=== PATIENT | female | born 1960 | race Caucasian/White ===

== ENCOUNTER 2021-02-11 08:03 | Outpatient (AMBR) | payer BC, SELFPAY ==
--- NOTE | 2021-02-04 12:58 | PTNOTE_ITS ---
PT OP Initial Eval Patient Information Visit Reasons: low back pain Medical Diagnosis: Low Back Pain Treatment Dx #1: Back Pain Start of Care: 02/04/21 Date of Onset: 5 years ago Initial Assessment Subjective Pt is a 60 y/o female c/o chronic low back pain started ~ 5 years ago. Pt's recent xray showed DDD of multilevel but no MRI has been down thus far due to pacemaker. Pt has limitation with prolonged sitting, standing, walking, lifting, work duties, chores, and performing recreational activities. Pt's average back pain (9/10) and worsening to 13/10 some days. Objective L/S AROM: all motions are 50% towards end range with pain in all plane Hip PROM: all motions are WFL Hip MMTs Glute Med: 3/5 Glute Max: 3/5 Assessment Pt demonstrate L/S mobility deficits with pain consistent with DDD findings leading to decline function. 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 Goals 1) Increase L/S AROM WNL in 6 wks to be able to perform chores 2) Decrease back pain to 2/10 in 6 wks to be able to sit and stand more than 30 mins 3) Increase core strength WFL in 6 wks to be able to perform lifting activities 4) Increase hip MMTs grossly to 4-/5 in 6 wks to be able to walk more than 1 hr 5) Indep with HEP Treatment Plan 1) Manual Therapy 2) Therapeutic Activities 3) Therapeutic Exercises 4) Modalities (ice, heat, traction) Frequency and Duration 2 x wk for 6 wks Certification Dates: 02/04/21 to 05/06/21 Office Procedures PT Procedures PT Date of Service: 02/04/21 OP PT Eval Mod Complex 30 minutes: Yes
--- NOTE | 2021-02-09 09:02 | PT.ODAYNRPT ---
PT Outpatient Daily Note Date of Service: 02/09/21 OP Daily Note Visit Reasons: low back pain Outpatient Physical Therapy Treatment Date: 02/09/21 Subjective: Pt mention that her back feels the same and does notice left LE pain x2 a month Objective: Please see flow chart for list of ther ex performed Assessment: tolerate exercises with minimal pain Plan: Continue with PT Length of Time (minutes) of Treatment: 30 Minutes Office Procedures PT Procedures PT Date of Service: 02/09/21 Therapeutic Exercise 30 minutes: Yes PT Procedures PT Date of Service: 02/04/21 OP PT Eval Mod Complex 30 minutes: Yes
--- NOTE | 2021-02-11 08:53 | PT.ODAYNRPT ---
PT Outpatient Daily Note Date of Service: 02/11/21 OP Daily Note Visit Reasons: low back pain Outpatient Physical Therapy Treatment Date: 02/11/21 Subjective: Pt's back was pretty sore after last treatment session. Pt now notice some shooting pain down the left leg. Her pain is worse in sitting. Objective: Please see flow chart for list of ther ex performed Assessment: tolerate exercises with minimal pain Plan: Continue with PT Length of Time (minutes) of Treatment: 30 Minutes Office Procedures PT Procedures PT Date of Service: 02/09/21 Therapeutic Exercise 30 minutes: Yes PT Procedures PT Date of Service: 02/11/21 Therapeutic Exercise 30 minutes: Yes PT Procedures PT Date of Service: 02/04/21 OP PT Eval Mod Complex 30 minutes: Yes
== END 2021-02-11 23:59 | disposition home or self-care (01) ==
PROVIDERS: PCP Student in an Organized Health Care Education/Training Program; Referring Provider Student in an Organized Health Care Education/Training Program; Visit Provider Student in an Organized Health Care Education/Training Program
DX: M54.5 Low back pain (principal); G89.29 Other chronic pain; R26.2 Difficulty in walking, not elsewhere classified
CPT/HCPCS: 97110; 97162

== ENCOUNTER 2021-02-17 08:18 | Outpatient (AMBR) | payer BC, SELFPAY ==
--- NOTE | 2021-02-15 08:53 | PT.ODAYNRPT ---
PT Outpatient Daily Note Date of Service: 02/15/21 OP Daily Note Visit Reasons: low back pain Outpatient Physical Therapy Treatment Date: 02/15/21 Subjective: Pt's back is the same and continues to have the same pain. Pt does feel better after each PT session but pain comes back Objective: Please see flow chart for list of ther ex performed Assessment: tolerate exercises with minimal pain Plan: Continue with PT Length of Time (minutes) of Treatment: 30 Minutes Office Procedures PT Procedures PT Date of Service: 02/15/21 Therapeutic Exercise 30 minutes: Yes
--- NOTE | 2021-02-17 09:26 | PT.ODAYNRPT ---
PT Outpatient Daily Note Date of Service: 02/17/21 OP Daily Note Visit Reasons: low back pain Outpatient Physical Therapy Treatment Date: 02/17/21 Subjective: Pt's back pain is the same. No change and continues to have pain. Objective: Please see flow chart for list of ther ex performed Assessment: tolerate exercises with minimal pain Plan: Continue with PT Length of Time (minutes) of Treatment: 30 Minutes Office Procedures PT Procedures PT Date of Service: 02/17/21 Therapeutic Exercise 30 minutes: Yes PT Procedures PT Date of Service: 02/15/21 Therapeutic Exercise 30 minutes: Yes
--- NOTE | 2021-03-17 12:30 | PT.ODS1RPT ---
PT OP Progress/Discharge Note Date of Service: 03/17/21 Progress Note/DC Note Progress Note/Discharge Note: DC Note Patient Information Visit Reasons: low back pain Service Continue Service or Discharge: Discharge Discharge Date: 03/17/21 Status Assessment: Pt has been seen for 5 visits (eval + 4 visits). Pt was last treated on 02/17/21 and no showed last 3 appts (02/25, 03/04, and 03/17). At this time Pt will be d/c from care due to non-compliance per attendance policy. Pt did not meet set goals in therapy, thank you for your referrals. Office Procedures PT Procedures PT Date of Service: 02/17/21 Therapeutic Exercise 30 minutes: Yes PT Procedures PT Date of Service: 02/15/21 Therapeutic Exercise 30 minutes: Yes
== END 2021-03-14 23:59 | disposition home or self-care (01) ==
PROVIDERS: PCP Student in an Organized Health Care Education/Training Program; Referring Provider Student in an Organized Health Care Education/Training Program; Visit Provider Student in an Organized Health Care Education/Training Program
DX: M54.5 Low back pain (principal); G89.29 Other chronic pain; R26.2 Difficulty in walking, not elsewhere classified
CPT/HCPCS: 97110

== ENCOUNTER 2024-12-04 09:04 | Emergency (ER) | payer OTHER, MEDICAID, SELFPAY ==
[2024-12-04 09:45] VITALS: BP 136/80; PULSE 59; RESP 18; TEMP 36.5; O2SAT 96
[2024-12-04 09:50] VITALS: BMI 43.5
--- NOTE | 2024-12-04 09:56 | XR_ITS ---
Examination: PA lateral chest 2 views TECHNIQUE: Upright PA lateral chest 2 views Exam date and time: December 04, 2024 1009 hours Comparison October 25, 2021 INDICATIONS: Patient has been coughing beginning 10 days ago. FINDINGS: Accentuation of the basilar bronchovascular markings No lobar pneumonia Minor prominence left ventricle Cardiac leads satisfactory position Prominent osteopenia IMPRESSION: Basilar bronchitis pattern
--- NOTE | 2024-12-04 12:07 | EDNOTE_ITS ---
Upper Respiratory Inf. RME/HPI General Chief Complaint: Flu Like Symptoms Stated Complaint: 3 WKS COLD, COUGH Time Seen by Provider: 12/04/24 09:33 Source: patient Arrival date/time: 12/04/24 09:04 This is a 64-year-old female presents to the emergency department with complaints of intermittent cough for 3 weeks. She does report she started with a upper respiratory infection about 3 weeks ago and her symptoms have not improved patient is requesting chest x-ray to rule out pneumonia. Has been taking [id number] cough syrup. Denies fever, chest pain, chills rigors. Mode of arrival: ambulatory Related Data Home Medications ?Medication ?Instructions ?Recorded ?Confirmed spironolactone 25 mg tablet 25 mg PO Daily #0 tabs 09/18/23 (Aldactone) atorvastatin 40 mg tablet (Lipitor) 40 mg PO QDAY 03/0609/18/23 Previous Rx's ?Medication ?Instructions ?Recorded apixaban 5 mg tablet (Eliquis) 5 mg PO BID #60 tabs diltiazem HCl 120 mg 120 mg PO QAM #30 caps 05/12 capsule,extended release 24 hr (Cardizem CD) cyclobenzaprine 10 mg tablet 10 mg PO HS #14 tabs 12/08 doxycycline hyclate 100 mg capsule 100 mg PO Q12H 7 da ys #14 caps 12/04/24 levalbuterol tartrate 45 2 inh inhalation Q6H PRN sharona rtness 12/04/24 mcg/actuation aerosol inhaler of breath or wheezing #1 5 grams Allergies Allergy/AdvReac Type Severity Reaction Status Date / Time No Known Allergies Allergy Verified 06/16/24 14:14 Review of Systems Review of Systems Systems Reviewed: All systems reviewed, normal except as documented ED Exam Narrative Physical exam: General: Sittiing in Exam table in no acute distress, answering questions appropriately HENT: normocephalic, atraumatic, EOMI, PERRLA, moist mucous membranes Chest: chest wall is nontender Cardiac: regular rate and rhythm, normal S1 and S2, no murmurs, rubs, or gallops, capillary refill ?2 seconds Pulmonary: Mild upper wheezing, no crackles, or rhonchi Abdominal: active bowel sounds, soft, nontender, nondistended Neuro: A&OX3, CN II-XII intact, sensation grossly intact bilaterally in UE and LE. Skin: no rashes, no ecchymosis Ext: no lower extremity edema Course Quality Measures none Orders Category Date Time Status XR chest 2V Stat Exams 12/04/24 09:56 Completed Ipratropium [place] Rt Kerline [Atrovent Rt Kerline] Med 12/04/24 12:07 Discontinued 0.5 mg INH X1 ONE Levalbuterol Rt [Xopenex Rt Kerline] Med 12/04/24 12:07 Discontinued 1.25 mg INH X1 ONE Sodium Chloride Rt Kerline 0.9% [NS Rt Kerline 0.9%] Med 12/04/24 12:07 Discontinued 3 ml INH PRN PRN Vital Signs Vital signs: Vital Signs Temperature 97.7 F 12/04/24 09:45 Pulse Rate 59 L 12/04/24 09:45 Respiratory Rate 18 12/04/24 09:45 Blood Pressure 136/80 H 12/04/24 09:45 Pulse Oximetry (%) 96 12/04/24 09:45 Oxygen Delivery Method Room Air 12/04/24 09:45 Upper Respiratory Infection MDM Narrative MDM Narrative:: 67-year-old female presented to the emergency department with complaints of cough lasting approximately 2 weeks, often associated with sputum production, and wheezing. Symptoms consistent with bronchitis. Patient did receive prednisone and a DuoNeb while in ED. Patient did not have any acute hypoxemia. No respiratory distress. X-ray obtained to rule out any lung pathology. Will discharge home with a burst of prednisone, albuterol inhaler. Post follow-up with his PCP * ER precautions to return if there is any worsening symptoms or change in condition Patient data External records reviewed:: [facility] previous records Clinical information provided by:: patient Social determinants that could affect healthcare access:: none Patient has the following chronic illnesses:: Hypertension, A-fib How is presenting disease/condition affected by chronic disease/condition?: no chronic disease Evaluation data The following diagnostics were reviewed and interpreted by me:: radiology exam(s) Lab and/or radiology exams considered but not ordered:: No Interpretation Summary: Examination: PA lateral chest 2 views TECHNIQUE: Upright PA lateral chest 2 views Exam date and time: December 04, 2024 1009 hours Comparison October 25, 2021 INDICATIONS: Patient has been coughing beginning 10 days ago. FINDINGS: Accentuation of the basilar bronchovascular markings No lobar pneumonia Minor prominence left ventricle Cardiac leads satisfactory position Prominent osteopenia IMPRESSION: Basilar bronchitis pattern Medications / Prescriptions Medications or Prescriptions considered but not ordered:: Consider albuterol however patient does not want to have tacky hr which will lead to her A-fib Medication administrations:: Medication Administration History Discontinued Medications Ipratropium [place] (Ipratropium Rt 0.5 Mg/ 2.5 Ml Nebu) 0.5 mg INH X1 ONE Stop: 12/04/24 12:08 Last Admin: 12/04/24 12:26 Dose: 0.5 mg Documented By: Levalbuterol HCl (Levalbuterol Rt 1.25 Mg/0.5 Ml Nebu) 1.25 mg INH X1 ONE Stop: 12/04/24 12:08 Last Admin: 12/04/24 12:26 Dose: 1.25 mg Documented By: Sodium Chloride (Sodium Chloride Rt Kerline 0.9% 3 Ml Nebu) 3 ml INH PRN PRN PRN Reason: SOLN Stop: 01/03/25 12:06 All medications administered and effective Consultations Consultation(s) initiated? (list below): No Diagnosis Upper Respiratory Differential Diagnosis: upper respiratory infection, viral infection, bronchitis, influenza and pharyngitis Most likely diagnosis given after review of the tests above:: bronchitits Admission Indicated Admission indicated?: not indicated Admission Request Was there a request for admission?: No Disposition Plan Disposition Plan: Discharge Discharge Attestation Discharge Attestation: The patient and all family members were given an opportunity to ask questions and understood the discharge instructions. Discharge instructions specifically effects, indications for sooner follow up or return to the emergency department, and the expected course of current diagnosis. Patient condition: Stable Discharge Plan Plan Patient Disposition: HOME (Self Care) Prescriptions/Referrals Prescriptions/Med Rec: New doxycycline hyclate 100 mg capsule 100 mg PO Q12H 7 Days Qty: 14 0RF levalbuterol tartrate 45 mcg/actuation HFA aerosol inhaler 2 inh inhalation Q6H PRN (Reason: shortness of breath or wheezing) Qty: 15 0RF No Action atorvastatin [Lipitor] 40 mg tablet 40 mg PO QDAY spironolactone [Aldactone] 25 MG tablet 25 mg PO Daily Qty: 0 diltiazem HCl [Cardizem CD] 120 mg capsule,extended release 24hr 120 mg PO QAM Qty: 30 0RF Eliquis 5 mg tablet 5 mg PO BID Qty: 60 0RF cyclobenzaprine 10 mg tablet 10 mg PO HS Qty: 14 0RF Referrals: David Aldana MD [Primary Care Provider] - In 1 week Problem List Clinical Impression: Bronchitis Patient/Caregiver Discharge Instructions Discharge Activity: activity as tolerated Education Materials: ED Bronchitis with Wheezing (Adult) Additional Instructions: Please make sure you follow-up with your primary doctor. Your x-ray demonstrates bronchitis pattern Which causes cough, wheezing shortness of breath. -Please use inhaler as directed. -Antibiotics as directed. I would recommend some steroids to help with inflammation Return to the emergency department this any worsening symptoms change in condition. Print Language: Bulgarian Stand Alone Forms: Kristal Award Info., Patient Portal Info Letter PA/SUPERVISOR BILLPOSTING Supervising Physician PA/SUPERVISOR BILLPOSTING Supervising Physician: Dr Simmons
[2024-12-04] MEDS: LEVALBUTEROL RT 1.25 MG/0.5 ML NEBU INH (12:26)
[2024-12-04] MEDS: IPRATROPIUM RT 0.5 MG/ 2.5 ML NEBU INH (12:26)
[2024-12-04 12:29] VITALS: PULSE 60; RESP 16; O2SAT 99
== END 2024-12-04 13:37 | disposition home or self-care (01) ==
PROVIDERS: Emergency Provider Emergency Medicine; PCP Student in an Organized Health Care Education/Training Program
DX: J40 Bronchitis, not specified as acute or chronic (principal)
CPT/HCPCS: 71046; 94640; 99283

== ENCOUNTER 2025-01-02 09:06 | Emergency (ER) | payer OTHER, SELFPAY ==
[2025-01-02 09:06] VITALS: BMI 44.9
[2025-01-02 09:24] VITALS: BP 158/69; PULSE 65; RESP 19; TEMP 37.2; O2SAT 97
--- NOTE | 2025-01-02 09:29 | XR_ITS ---
Examination: PA lateral chest 2 views TECHNIQUE: Upright PA lateral chest 2 views Exam date and time: January 02, 2025 0959 hours INDICATIONS: Coughing headache fever today FINDINGS: Minimal prominence left ventricle Mild vascular congestion. Minimal accentuation basilar bronchovascular markings Satisfactory position No interval pneumonia or pulmonary edema compared with December 04, 2024 IMPRESSION: Mild basilar bronchitis pattern
--- NOTE | 2025-01-02 09:34 | PD.EDURI ---
Upper Respiratory Inf. RME/HPI General Chief Complaint: Flu Like Symptoms Stated Complaint: HEADACHE, CHILLS,COUGH Time Seen by Provider: 01/02/25 09:09 Source: patient Arrival date/time: 01/02/25 09:06 This is a 64-year-old female presents to the emergency department with complaints of intermittent cough, body aches for 3 days. She does report was exposed to flu 5 days ago. Reports her has similar symptoms. Has been taking [id number] cough syrup. Denies fever, chest pain, chills rigors. Mode of arrival: ambulatory Related Data Home Medications ?Medication ?Instructions ?Recorded ?Confirmed spironolactone 25 mg tablet 25 mg PO Daily #0 tabs 11/14/13 09/18/23 (Aldactone) atorvastatin 40 mg tablet (Lipitor) 40 mg PO QDAY 09/18/23 09/18/23 Previous Rx's ?Medication ?Instructions ?Recorded apixaban 5 mg tablet (Eliquis) 5 mg PO BID #60 tabs 05/12/20 diltiazem HCl 120 mg 120 mg PO QAM #30 caps 05/12/20 capsule,extended release 24 hr (Cardizem CD) cyclobenzaprine 10 mg tablet 10 mg PO HS #14 tabs 06/16/24 levalbuterol tartrate 45 2 inh inhalation Q6H PRN shortness 12/04/24 mcg/actuation aerosol inhaler of breath or wheezing #15 grams nirmatrelvir 300 mg (150 mg See Rx Instructions PO .COMPLEX 01/02/25 x2)-ritonavir 100 mg tablet,dose #30 tabs pack (Paxlovid) Allergies Allergy/AdvReac Type Severity Reaction Status Date / Time No Known Allergies Allergy Verified 01/02/25 09:08 Review of Systems Review of Systems Systems Reviewed: All systems reviewed, normal except as documented ED Exam Narrative Physical exam: General: Sittiing in Exam table in no acute distress, answering questions appropriately HENT: normocephalic, atraumatic, EOMI, PERRLA, moist mucous membranes Chest: chest wall is nontender Cardiac: regular rate and rhythm, normal S1 and S2, no murmurs, rubs, or gallops, capillary refill ?2 seconds Pulmonary: Mild upper wheezing, no crackles, or rhonchi Abdominal: active bowel sounds, soft, nontender, nondistended Neuro: A&OX3, CN II-XII intact, sensation grossly intact bilaterally in UE and LE. Skin: no rashes, no ecchymosis Ext: no lower extremity edema Course Quality Measures none Orders Category Date Time Status Bedside COVID-19 Antigen Test NOW Care 01/02/25 09:29 Completed Bedside Influenza A&B Antigen Test NOW Care 01/02/25 09:29 Completed XR chest 2V Stat Exams 01/02/25 09:29 Completed Vital Signs Vital signs: Vital Signs Temperature 99.0 F 01/02/25 09:24 Pulse Rate 65 01/02/25 09:24 Respiratory Rate 19 01/02/25 09:24 Blood Pressure 158/69 H 01/02/25 09:24 Pulse Oximetry (%) 97 01/02/25 09:24 Oxygen Delivery Method Room Air 01/02/25 09:24 Upper Respiratory Infection MDM Narrative MDM Narrative:: 67-year-old female presented to the emergency department with complaints of cough, body aches, low-grade fever. Patient did not have any acute hypoxemia. No respiratory distress. X-ray obtained to rule out any lung pathology. Patient's COVID test was positive and her influenza test were positive. Advised and reassured patient her symptoms are due to viral syndrome. Paxlovid sent to pharmacy. Advised to stop atorvastatin for 5 days. Post follow-up with his PCP ER precautions to return if there is any worsening symptoms or change in condition Patient data External records reviewed:: [facility] previous records Clinical information provided by:: patient Social determinants that could affect healthcare access:: none Patient has the following chronic illnesses:: Hypertension, A-fib How is presenting disease/condition affected by chronic disease/condition?: no chronic disease Evaluation data The following diagnostics were reviewed and interpreted by me:: radiology exam(s) Lab and/or radiology exams considered but not ordered:: No Interpretation Summary: Examination: PA lateral chest 2 views TECHNIQUE: Upright PA lateral chest 2 views Exam date and time: January 02, 2025 0959 hours INDICATIONS: Coughing headache fever today FINDINGS: Minimal prominence left ventricle Mild vascular congestion. Minimal accentuation basilar bronchovascular markings Satisfactory position No interval pneumonia or pulmonary edema compared with December 04, 2024 IMPRESSION: Mild basilar bronchitis pattern Medications / Prescriptions Medications or Prescriptions considered but not ordered:: Consider albuterol however patient does not want to have tacky hr which will lead to her A-fib Medication administrations:: All medications administered and effective Consultations Consultation(s) initiated? (list below): No Diagnosis Upper Respiratory Differential Diagnosis: upper respiratory infection, viral infection, bronchitis, influenza and pharyngitis Most likely diagnosis given after review of the tests above:: Viral syndrome,(+ COVID-19, influenza,) Admission Indicated Admission indicated?: not indicated Admission Request Was there a request for admission?: No Disposition Plan Disposition Plan: Discharge Discharge Attestation Discharge Attestation: The patient and all family members were given an opportunity to ask questions and understood the discharge instructions. Discharge instructions specifically effects, indications for sooner follow up or return to the emergency department, and the expected course of current diagnosis. Patient condition: Stable Discharge Plan Plan Patient Disposition: HOME (Self Care) Patient condition on transfer: Stable Prescriptions/Referrals Prescriptions/Med Rec: New Paxlovid 300 mg (150 mg x 2)-100 mg tablets,dose pack See Rx Instructions .ROUTE .COMPLEX Qty: 30 0RF Rx Instructions: take TWO 150 mg tablets of nirmatrelvir with ONE 100 mg tablet of ritonavir twice daily for 5 days No Action atorvastatin [Lipitor] 40 mg tablet 40 mg PO QDAY spironolactone [Aldactone] 25 MG tablet 25 mg PO Daily Qty: 0 diltiazem HCl [Cardizem CD] 120 mg capsule,extended release 24hr 120 mg PO QAM Qty: 30 0RF Eliquis 5 mg tablet 5 mg PO BID Qty: 60 0RF cyclobenzaprine 10 mg tablet 10 mg PO HS Qty: 14 0RF levalbuterol tartrate 45 mcg/actuation HFA aerosol inhaler 2 inh inhalation Q6H PRN (Reason: shortness of breath or wheezing) Qty: 15 0RF Referrals: No Primary/Family,Physician [Primary Care Provider] - In 1 week Problem List Clinical Impression: COVID-19 Patient/Caregiver Discharge Instructions Discharge Activity: activity as tolerated Education Materials: 2019-nCoV Additional Instructions: Today you were evaluated for URI symptoms positive for COVID-19 and influenza. Please start Paxil bid as directed. Stop Lipitor for last 5 days while Paxlovid treatment. Please follow up with Primary Doctor in 24-48 hrs. Please return to ER if any worsening symptoms. COVID-19 is a very unpredictable disease if you should worsen please come back as soon as possible. Please isolate for 5 days. Get appointment with your primary doctor for follow-up care. Print Language: Samoan Stand Alone Forms: Kristal Award Info., Patient Portal Info Letter PA/NEW CLIENT BANKING SERVICES CLERK Supervising Physician PA/NEW CLIENT BANKING SERVICES CLERK Supervising Physician: Dr Simmons
[2025-01-02 10:54] VITALS: BP 145/76; PULSE 67; RESP 19; TEMP 37.6; O2SAT 97
== END 2025-01-02 10:55 | disposition home or self-care (01) ==
PROVIDERS: Emergency Provider Emergency Medicine
DX: U07.1 COVID-19 (principal)
CPT/HCPCS: 71046; 87400; 87811; 99283